=== PATIENT | male | born 1980 | race Two or more races ===

== ENCOUNTER 2016-12-30 05:49 | Emergency (ER) | payer MEDICAID ==
[2016-12-30] MEDS ORDERED: NS 1,000 ML IV ONE ×2 (06:07)
[2016-12-30] MEDS ORDERED: FAMOTIDINE 20 MG TAB PO ONE (06:07)
[2016-12-30] MEDS ORDERED: ONDANSETRON DISINTEGRATING 4 MG TAB PO ONE (06:07)
[2016-12-30] MEDS ORDERED: KETOROLAC 30 MG/1 ML SDV IVP ONE (06:08)
[2016-12-30] MEDS ORDERED: TDAP ADULT 0.5 ML INJ (BOOSTRIX) IM ONE (06:08)
[2016-12-30] MEDS ORDERED: SKIN ADHESIVE (DERMABOND) 1 EACH TP ONE (06:08)
[2016-12-30 06:23] LABS: % IMMATURE GRANULYOCYTES 0.5 % (0.0-1.1); ABSOLUTE IMMATURE GRANULOCYTES 0.06 10^3/uL (0.00-0.10); ADD DIFF? NO; ADD MORPH? NO; ADD SCAN? NO; ATYPICAL LYMPHOCYTE FLAG 0 (0-99); FRAGMENT RBC FLAG 0 (0-99); HEMATOCRIT 47.4 % (40.0-51.0); HEMOGLOBIN 16.3 g/dL (13.7-17.5); LEFT SHIFT FLG 0 (0-99); LIPEMIA HEMOLYSIS FLAG 90 (0-99); MEAN CELL HEMOGLOBIN 30.1 pg (27.9-34.1); MEAN CELL HEMOGLOBIN CONCENTR. 34.4 g/dL (32.4-36.7); MEAN CELL VOLUME 87.5 fL (81.5-99.8); MEAN PLATELET VOLUME 8.9 fL (8.7-11.7); PLATELET CLUMPS FLAG 0 (0-99); PLATELET COUNT 343 10^3/uL (150-400); RED BLOOD CELL COUNT 5.42 10^6/uL (4.40-6.38); RED CELL DISTRIBUTION WIDTH 13.7 % (11.5-15.2)
[2016-12-30 06:49] LABS: ALANINE AMINOTRANSFERASE 37 IU/L (21-72); ALBUMIN 4.5 g/dL (3.5-5.0); ALKALINE PHOSPHATASE 55 IU/L (38-126); ANION GAP 18 mEq/L (8-16); ASPARTATE AMINOTRANSFERASE 38 IU/L (17-59); BILIRUBIN,TOTAL 0.5 mg/dL (0.1-1.4); BILIRUBIN-CONJUGATED 0.3 mg/dL (0.0-0.5); BILIRUBIN-UNCONJUGATED 0.2 mg/dL (0.0-1.1); CALCIUM 8.8 mg/dL (8.5-10.4); CARBON DIOXIDE 24 mEq/l (22-31); CHLORIDE 108 mEq/L (97-110); CREATININE 0.9 mg/dL (0.7-1.3); GLOMERULAR FILTRATION RATE > 60; GLUCOSE 139 mg/dL (70-100); POTASSIUM 4.5 mEq/L (3.5-5.2); SODIUM 150 mEq/L (134-144); TOTAL PROTEIN 8.7 g/dL (6.3-8.2)
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
[2016-12-30] MEDS ORDERED: IOPAMIDOL (ISOVUE-300) 100 ML BTL IV ONE (07:04)
[2016-12-30 07:12] VITALS: O2SAT 90
[2016-12-30 07:29] LABS: ETHANOL SERUM 304 mg/dL (0-10)
[2016-12-30 07:38] LABS: PHENCYCLIDINE URINE BCH < 6 ng/ml (NEGATIVE); TETRAHYDROCANNABINOL URINE < 5 ng/mL (NEGATIVE)
[2016-12-30 07:40] LABS: PHENCYCLIDINE URINE BCH NEGATIVE (NEGATIVE); TETRAHYDROCANNABINOL URINE NEGATIVE (NEGATIVE)
[2016-12-30 08:02] VITALS: BP 123/80; PULSE 116; RESP 16; TEMP 98.2
--- NOTE | 2016-12-30 16:07 | CT ---
Noncontrast Head CT 0 633 hours History: Head trauma. Alcohol use with loss of consciousness. Laceration lower lip. Technique: Standard noncontrast head CT protocol utilizing axial images was acquired through the jan varium. Images were reconstructed in multiple planes as well. Dose reduction techniques were utilized . Findings: Comparison to prior study study from August 10, 2014 and prior MRI study from February 10, 2015. There has been maturation of watershed type ischemic infarct involving the parieto-occipital junction bilaterally right-sided more prominent than left with associated encephalomalacia. Remote lacunar in farct is also seen involving the basal ganglia bilaterally. Small presumed remote ischemic infarct is also seen right frontal parietal lobe superior periventricular white matter location. There are no new masses, intracranial hemorrhage, subdural collections, or evidence of recent cerebra l infarction. The bones are unremarkable. The paranasal sinuses are clear. Impression: 1. No acute intracranial abnormality seen. 2. Maturation of remote ischemic/anoxic type infarcts as detailed above. The study was performed as an emergency on-call case and discussed by telephone with Dr. Carrie bonds at 0 645 hrs. The final interpretation is concordant with the original communication.
--- NOTE | 2016-12-30 16:13 | CT ---
CT Scan of the Abdomen and Pelvis (With Contrast) 0718 hours History: Abdominal pain. History of pancreatitis. Technique: Axial computed tomographic images of the abdomen and pelvis were obtained with the unevent ful intravenous administration of 90 mL Isovue-300 contrast. . Images were reviewed in multiple plane s. Dose reduction techniques were utilized. CT Abdomen and Pelvis Findings: Comparison to prior CT study of December 25, 2014. Lung bases: Normal. Liver: Normal. Spleen: Normal. Gallbladder and Bile Ducts: Previous cholecystectomy. No biliary ductal dilatation is seen. Pancreas: There is a new punctate calcification in the region of the pancreatic head and uncinate pro cess probably from previous pancreatitis. There is no acute inflammation around the pancreas in the m esentery or pancreatic ductal dilatation. Adrenals: Normal. Kidneys: No obstruction or solid masses. Abdominal Aorta: No aneurysm. Pelvic structures: Normal Bladder: Moderate distention. No focal bladder abnormality is seen. Appendix: Normal. Bowel Loops: Normal. No bowel obstruction, ascites, or significant retroperitoneal lymphadenopathy. Skeletal system: Vertebral body heights are well-maintained. There are no significant lytic or scler otic osseous lesions. Impression: 1. New punctate calcification involving the pancreatic head probably from chronic pancreatitis. No ev idence of acute pancreatitis. 2. No CT evidence of appendicitis, abscess or bowel obstruction. The study was performed as an emergency on-call case and discussed by telephone with Dr. Carrie bonds at 0 735 hrs. The final interpretation is concordant with the original communication.
== END 2016-12-30 08:27 | disposition home or self-care (01) ==
PROC: 0HQ1XZZ Repair Face Skin, External Approach (ICD-10-PCS; principal; 2016-12-30)
DX: S01.81XA Laceration without foreign body of other part of head, initial encounter (principal); K85.22 Alcohol induced acute pancreatitis with infected necrosis; F10.10 Alcohol abuse, uncomplicated; E11.9 Type 2 diabetes mellitus without complications; I10 Essential (primary) hypertension; Z86.73 Personal history of transient ischemic attack (TIA), and cerebral infarction without residual deficits; Z23 Encounter for immunization; Y04.0XXA Assault by unarmed brawl or fight, initial encounter
CPT/HCPCS: 80307; 96374; G0480; J1885; Q9967

== ENCOUNTER → 2017-08-14 | Outpatient (CLI) | payer OTHER ==
[~2017-08-14] MED LIST: GADOBUTROL 10 ML VIAL IVP ONE
== END ==
LOC: FIMAGING 15:17
PROVIDERS: ATTEND Family Medicine
DX: K86.9 Disease of pancreas, unspecified (principal)
CPT/HCPCS: 74183; A9585

== ENCOUNTER 2017-10-22 12:19 | Emergency (ER) | payer OTHER ==
[2017-10-22 12:37] VITALS: RESP 18; TEMP 98.4
--- NOTE | 2017-10-22 13:40 | EDPHY ---
HPI/HX/ROS/PE/MDM Narrative: CHIEF COMPLAINT: Abdominal pain. HPI: This patient is a pleasant 37 year old male with history of alcohol abuse and recurrent pancreatitis complaining of upper abdominal pain onset two days ago. He endorses alcohol consumption three days ago. He was evaluated at [facility] earlier this morning, and states his laboratory work there was normal but he continues to experience epigastric pain. He denies fever, chest pain, shortness of breath, vomiting, or other associated symptoms. REVIEW OF SYSTEMS: Aside from elements discussed in the HPI, a comprehensive 10-point review of systems was reviewed and is negative. PMH: 1. Chronic pancreatitis 2. Hypertension 3. Chronic pain 4. History of polysubstance abuse 5. Duodenitis 6. Splenic vein thrombosis 7. S/p left ankle fracture and surgery 8. Left retinal detachment SOCIAL HISTORY: Single. Lives in [place]. Employed. PHYSICAL EXAM: General:Patient is alert, in no acute distress. ENT:Eyes are normal to inspection. ENT inspection normal. Neck: Normal inspection. Full range of motion. Respiratory:No respiratory distress. Breath sounds normal bilaterally. Cardiovascular: Regular rate and rhythm. Strong peripheral pulses. Normal cap refill. Abdomen: Moderate epigastric tenderness. There are no peritoneal signs. There are normal bowel sounds. Back: Normal to inspection. No tenderness to palpation. Skin: Normal color. No rash. Warm and dry. Extremities: Normal appearance. Full range of motion. Neuro: Oriented x3. Normal motor function. Normal sensory function. ED Course: 37 year old male with history of chronic pancreatitis presents with two day history of epigastric pain. Exam reveals moderate epigastric tenderness. Plan for labs including CBC, BMP, liver, lipase. IV established. Plan to administer 20mg IV Pepcid and 1L IV NS for symptom relief. Discussed narcotic pain medication guidelines with the patient. Glucose elevated at 344. Laboratory studies otherwise unremarkable. 15:58 The patient states he would like to go home. Plan to discharge in good condition. Follow up and return precautions discussed. - Data Points Laboratory Results: Laboratory Results 10/22/17 12:56 10/22/17 12:56 10/22/17 10/22/17 10/22/17 12:56 12:56 12:56 WBC 8.25 10^3/uL 10^3/uL (3.80-9.50) RBC 5.44 10^6/uL 10^6/uL (4.40-6.38) Hgb 16.5 g/dL g/dL (13.7-17.5) Hct 45.1 % % (40.0-51.0) MCV 82.9 fL fL (81.5-99.8) MCH 30.3 pg pg (27.9-34.1) MCHC 36.6 g/dL g/dL (32.4-36.7) RDW 12.2 % % (11.5-15.2) Plt Count 186 10^3/uL 10^3/uL (150-400) MPV 10.6 fL fL (8.7-11.7) Neut % (Auto) 65.5 % % (39.3-74.2) Lymph % (Auto) 26.3 % % (15.0-45.0) [place] % (Auto) 6.7 % % (4.5-13.0) Eos % (Auto) 0.6 % % (0.6-7.6) Baso % (Auto) 0.4 % % (0.3-1.7) Nucleat RBC Rel Count 0.0 % % (0.0-0.2) Absolute Neuts (auto) 5.41 10^3/uL 10^3/uL (1.70-6.50) Absolute Lymphs (auto) 2.17 10^3/uL 10^3/uL (1.00-3.00) Absolute Monos (auto) 0.55 10^3/uL 10^3/uL (0.30-0.80) Absolute Eos (auto) 0.05 10^3/uL 10^3/uL (0.03-0.40) Absolute Basos (auto) 0.03 10^3/uL 10^3/uL (0.02-0.10) Absolute Nucleated RBC 0.00 10^3/uL 10^3/uL (0-0.01) Immature Gran % 0.5 % % (0.0-1.1) Immature Gran # 0.04 10^3/uL 10^3/uL (0.00-0.10) Sodium 134 mEq/L mEq/L (134-144) Potassium 4.0 mEq/L mEq/L (3.5-5.2) Chloride 101 mEq/L mEq/L (97-110) Carbon Dioxide 21 mEq/l L mEq/l (22-31) Anion Gap 12 mEq/L mEq/L (8-16) BUN 17 mg/dL mg/dL (7-23) Creatinine 0.9 mg/dL mg/dL (0.7-1.3) Estimated GFR > 60 Glucose 344 mg/dL H mg/dL (70-100) Calcium 8.6 mg/dL mg/dL (8.5-10.4) Total Bilirubin 0.4 mg/dL mg/dL (0.1-1.4) Conjugated Bilirubin 0.1 mg/dL mg/dL (0.0-0.5) Unconjugated Bilirubin 0.3 mg/dL mg/dL (0.0-1.1) AST 23 IU/L IU/L (17-59) ALT 36 IU/L IU/L (21-72) Alkaline Phosphatase 84 IU/L IU/L (38-126) Total Protein 7.3 g/dL g/dL (6.3-8.2) Albumin 3.9 g/dL g/dL (3.5-5.0) Lipase 174 IU/L IU/L (23-300) Medications Given: Discontinued Medications Sodium Chloride (Ns) 1,000 mls @ 0 mls/hr IV EDNOW ONE; Wide Open PRN Reason: Protocol Stop: 10/22/17 13:56 Last Admin: 10/22/17 14:05 Dose: 1,000 mls Famotidine/Sodium Chloride (Pepcid 20 Mg (Premix)) 50 mls @ 200 mls/hr IV EDNOW ONE Stop: 10/22/17 14:09 Last Admin: 10/22/17 14:04 Dose: 50 mls General Time Seen by Provider: 10/22/17 13:20 Initial Vital Signs: Initial Vital Signs Temperature (C) 36.9 C 10/22/17 12:34 Heart Rate 98 10/22/17 12:34 Respiratory Rate 18 10/22/17 12:34 Blood Pressure 134/112 H 10/22/17 12:34 O2 Sat (%) 94 10/22/17 12:34 O2 Delivery Mode Room Air Allergies/Adverse Reactions: No Known Allergies Allergy (Verified 10/22/17 12:33) Home Medications: Medication Instructions Recorded traZODone [traZODONE 100MG (*)] 100 mg PO HS 03/20/15 Sertraline HCl [Zoloft 50mg (*)] 04/24/16 Metformin 09/10/16 Ritalin 09/10/16 Levemir 10/22/17 Departure - Departure Disposition: Home, Routine, Self-Care Clinical Impression: Alcoholism, Acute cholecystitis Abdominal pain Qualifiers: Abdominal location: epigastric Qualified Code(s): R10.13 - Epigastric pain Condition: Good Instructions: Abuse of Alcohol (ED) Additional Instructions: Follow-up with your primary doctor within 72 hours. Return to the Emergency Department for worsening pain, fever, severe vomiting, change in character or severity of pain or other worsening of condition. Referrals: Michaela Chambers MD [Primary Care Provider] - As per Instructions Report Scribed for: [place] Report Scribed by: Annita Glez Date of Report: 10/22/17 Time of Report: 13:40 Physician Review and Approval Statement: Portions of this note were transcribed by an ED scribe. I personally performed the history, physical exam, and medical decision making; and confirm the accuracy of the information in the transcribed note.
[2017-10-22 13:47] LABS: ALANINE AMINOTRANSFERASE 36 IU/L (21-72); ALBUMIN 3.9 g/dL (3.5-5.0); ALKALINE PHOSPHATASE 84 IU/L (38-126); ANION GAP 12 mEq/L (8-16); ASPARTATE AMINOTRANSFERASE 23 IU/L (17-59); BILIRUBIN,TOTAL 0.4 mg/dL (0.1-1.4); BILIRUBIN-CONJUGATED 0.1 mg/dL (0.0-0.5); BILIRUBIN-UNCONJUGATED 0.3 mg/dL (0.0-1.1); CALCIUM 8.6 mg/dL (8.5-10.4); CARBON DIOXIDE 21 mEq/l (22-31); CHLORIDE 101 mEq/L (97-110); CREATININE 0.9 mg/dL (0.7-1.3); GLOMERULAR FILTRATION RATE > 60; GLUCOSE 344 mg/dL (70-100); SODIUM 134 mEq/L (134-144); TOTAL PROTEIN 7.3 g/dL (6.3-8.2)
[2017-10-22] MEDS ORDERED: FAMOTIDINE 20 MG/NACL 50 ML IV ONE (13:55)
[2017-10-22] MEDS ORDERED: NS 1,000 ML IV ONE (13:55)
[2017-10-22 14:02] LABS: % IMMATURE GRANULYOCYTES 0.5 % (0.0-1.1); ABSOLUTE IMMATURE GRANULOCYTES 0.04 10^3/uL (0.00-0.10); ADD DIFF? NO; ADD MORPH? NO; ADD SCAN? NO; ATYPICAL LYMPHOCYTE FLAG 0 (0-99); FRAGMENT RBC FLAG 0 (0-99); HEMATOCRIT 45.1 % (40.0-51.0); HEMOGLOBIN 16.5 g/dL (13.7-17.5); LEFT SHIFT FLG 0 (0-99); LIPEMIA HEMOLYSIS FLAG 90 (0-99); MEAN CELL HEMOGLOBIN 30.3 pg (27.9-34.1); MEAN CELL HEMOGLOBIN CONCENTR. 36.6 g/dL (32.4-36.7); MEAN CELL VOLUME 82.9 fL (81.5-99.8); MEAN PLATELET VOLUME 10.6 fL (8.7-11.7); PLATELET CLUMPS FLAG 0 (0-99); PLATELET COUNT 186 10^3/uL (150-400); RED BLOOD CELL COUNT 5.44 10^6/uL (4.40-6.38); RED CELL DISTRIBUTION WIDTH 12.2 % (11.5-15.2)
[2017-10-22 16:04] VITALS: BP 130/85; PULSE 75; O2SAT 95
== END 2017-10-22 16:04 | disposition home or self-care (01) ==
DX: K81.0 Acute cholecystitis (principal); F10.20 Alcohol dependence, uncomplicated; I10 Essential (primary) hypertension; E86.9 Volume depletion, unspecified; Z79.4 Long term (current) use of insulin
CPT/HCPCS: 96374